=== PATIENT | male | born 1990 | race Caucasian/White ===

== ENCOUNTER 2019-07-30 10:24 | Emergency (ER) | payer BC ==
[~2019-07-30] VITALS: Ht 172.7 cm; Wt 68.0 kg
--- NOTE | 2019-07-30 10:57 | NUR ---
ERMD at bedside for MSE
[2019-07-30] MEDS ORDERED: LIDOCAINE HCL 1% 20 ML VIAL ONE (11:34)
[2019-07-30] MEDS ORDERED: CEFTRIAXONE 1 G VIAL ONE (11:34)
[2019-07-30] MEDS ORDERED: CEFTRIAXONE 1 G VIAL IM ONE (11:45)
--- NOTE | 2019-07-30 11:58 | NUR ---
Patient discharged to home in stable conditon. Written and verbal after care instructions given. Patient verbalizes understanding of instructions. Patient ambulated with stable gait.
[2019-07-30 11:59] VITALS: BP 110/84
== END 2019-07-30 11:59 | disposition home or self-care (01) ==
LOC: ER 10:24
DX: J06.9 Acute upper respiratory infection, unspecified (principal)
CPT/HCPCS: 71045; 96372; 99283; J0696; J3490; A4663

== ENCOUNTER 2020-06-11 23:46 | Emergency (ER) | payer BC ==
[~2020-06-11] VITALS: Ht 172.7 cm; Wt 68.0 kg
[2020-06-12] MEDS ORDERED: predniSONE 10 MG TABLET ONE (00:11)
[2020-06-12] MEDS ORDERED: FAMOTIDINE 20 MG TABLET ONE (00:11)
[2020-06-12] MEDS ORDERED: predniSONE 50 MG TABLET ONE (00:11)
[2020-06-12] MEDS ORDERED: predniSONE 20 MG TABLET PO ONE (00:15)
[2020-06-12] MEDS ORDERED: FAMOTIDINE 20 MG TABLET PO ONE (00:15)
[2020-06-12 01:01] VITALS: BP 128/65
== END 2020-06-12 01:00 | disposition home or self-care (01) ==
LOC: ER 23:51
DX: L50.0 Allergic urticaria (principal)
CPT/HCPCS: 99283; J7512 ×2; A4663